=== PATIENT | female | born 1995 | race Two or more races ===

== ENCOUNTER 2024-01-08 17:13 | Emergency (ER) | payer MEDICAID, OTHER ==
[~2024-01-08] VITALS: Ht 154.9 cm; Wt 48.5 kg
[2024-01-08 17:36] VITALS: BP 142/96; PULSE 109; RESP 16; O2SAT 96
== END 2024-01-08 20:58 | disposition left against medical advice (07) ==
LOC: ER 17:13
DX: M25.532 Pain in left wrist (principal)
CPT/HCPCS: 73110; 73120